=== PATIENT | male | born 1960 | race Caucasian/White ===

== ENCOUNTER 2023-11-11 14:55 | Emergency (ER) | payer OTHER ==
[2023-11-11 16:15] LABS: #Basophils 0.01 10x3/uL (0.0-0.2); #Eosinphils 0.16 10x3/uL (0.0-0.5); #Monocytes 0.48 10x3/uL (0.0-1.1); #Neutrophils 5.87 10x3/uL (1.5-8.4); %Basophils 0.1 % (0.0-2.0); %Eosinophils 2.3 % (0.0-6.0); %Lymphocytes 7.5 % (18.0-47.0); %Monocytes 6.8 % (0.0-10.0); %Neutrophils 82.5 % (40.0-75.0); Hematocrit 36.2 % (38.8-50.0); Hemoglobin 12.8 g/dL (13.5-17.5); Mean Corpuscular HGB CONC 35.4 g/dL (32.0-36.0); Mean Platelet Volume 11.4 fL (7.4-10.4); Platelet Count 71 10x3/uL (150-450); RBC Distribution Width 14.4 % (11.5-14.5); Red Blood Cell (RBC) Count 3.77 10x6/uL (4.32-5.72); White Blood Cell (WBC) Count 7.1 10x3/uL (3.5-10.5)
[2023-11-11 16:21] LABS: ALT (SGPT) 24 U/L (8-55); AST (SGOT) 44 U/L (5-34); Alkaline Phosphatase 61 U/L (40-110); Anion Gap 13 mmol/L (10-20); BUN (Urea Nitrogen) 22 mg/dL (8.4-25.7); Bilirubin, Total 3.1 mg/dL (0.2-1.2); Calc. Creatinine Clearance 0 mL/min (70-130); Calcium 8.7 mg/dL (7.8-10.44); Carbon Dioxide 18 mmol/L (23-31); Chloride 102 mmol/L (98-107); Estimated GFR 60; Globulin 4.2 g/dL (2.4-3.5); Glucose 116 mg/dL (80-115); Lipase 10 U/L (8-78); Potassium 4.1 mmol/L (3.5-5.1); Protein, Total 7.2 g/dL (5.8-8.1); Sodium 129 mmol/L (136-145)
[2023-11-11] MEDS ORDERED: cefTRIAXone (ROCEPHIN) 1 GM VIAL ONE ×2 (16:53→19:09)
[2023-11-11] MEDS ORDERED: Ibuprofen 200 MG TAB ONE (16:53)
[2023-11-11] MEDS ORDERED: Ondansetron ODT 4 MG TAB PO PRN (18:34)
[2023-11-11] MEDS ORDERED: traMADol HCl 50 MG TAB PO PRN (18:34)
[2023-11-11] MEDS ORDERED: Ondansetron PF 4 MG/2 ML Vial IVP PRN (18:34)
[2023-11-11 19:33] LABS: Bilirubin Neg (Negative); Blood, Urine 25 (Negative); Clarity Clear (Clear); Glucose, Urine (Dipstick) Normal (Negative); Ketone, Urine Negative (Negative); Leukocyte Negative (Negative); Nitrite Negative (Negative); Protein, Urine (Dipstick) 15 mg/dl (Neg-Trace)
[2023-11-11 19:45] LABS: Bacteria/HPF None Seen HPF (None Seen); CAUTI Indications for Culture Alt mental st,lethar; RBC/HPF 0-3 HPF (0-3); Squamous Epithelial None Seen HPF (0-3); WBC/HPF 0-3 HPF (0-3)
[2023-11-11 19:46] LABS: Urine Culture Reflex No No
[2023-11-11 20:19] LABS: Lactic Acid 1.9 mmol/L (0.5-2.2)
[2023-11-11 20:20] LABS: Influenza A by NAA Not Detected (NotDetected); Influenza B by NAA Not Detected (NotDetected); SARS-CoV-2 NAA Rapid Test Not Detected (NotDetected)
[2023-11-11] MEDS ORDERED: VANCOMYCIN 2 GRAM/400 ML BAG 2 GM in Premix 1 BAG IVPB ONE (20:45)
[2023-11-11] MEDS ORDERED: Albumin 25% 25 GM (100 mL) BOT IVPB SCH (20:45)
[2023-11-11] MEDS ORDERED: Lactulose 20 GM (30 mL) UDCUP ONE (20:47)
[2023-11-11] MEDS ORDERED: Heparin 5,000 UNITS/ML VIAL SC SCH (21:00)
[2023-11-11] MEDS ORDERED: Acetaminophen 325 MG TAB PO SCH (23:59)
[2023-11-12] MEDS ORDERED: Lactulose 20 GM (30 mL) UDCUP PO SCH (09:00)
[2023-11-12] MEDS ORDERED: Pantoprazole DR 40 MG TAB PO SCH (09:00)
== END 2023-11-11 21:26 | disposition short-term general hospital (02) ==
LOC: CSHERS 14:55 → EEVIPCON 14:55 → CSHERS 21:26
DX: A41.9 Sepsis, unspecified organism (principal); K76.82 Hepatic encephalopathy; L03.113 Cellulitis of right upper limb; E87.1 Hypo-osmolality and hyponatremia; I10 Essential (primary) hypertension; J44.9 Chronic obstructive pulmonary disease, unspecified
CPT/HCPCS: 36415; 70450; 71045; 74176; 80053; 81001; 82140; 83605; 83690; 84145; 85025; 87040; 93005; 96374; 96375; 96376; J0696; J3370; P9047